=== PATIENT | male | born 1935 | race Caucasian/White ===

== ENCOUNTER 2023-07-27 11:01 | Day surgery (SDC) | payer OTHER, SELFPAY ==
[2023-07-27] VITALS (16 sets, daily range): BP systolic 112–143; BP diastolic 56–75; BMI 22.8
[2023-07-27 11:28] LABS: Hematocrit 32.8 % (39.0-52.0); Hemoglobin 10.7 g/dL (13.0-18.0); Mean Corp Hgb Conc. 32.6 g/dL (33.0-37.0); Mean Corpuscular Hgb 27.8 pg (27.0-31.0); Mean Corpuscular Volume 85.2 fL (80.0-94.0); Mean Platelet Volume 9.1 fL (7.4-10.4); Platelet Count 196 10^3/uL (130-400); Red Blood Cell Count 3.85 10^6/uL (4.70-6.10); Red Cell Dist. Width 14.2 % (11.5-14.5); White Blood Cell Count 5.3 10^3/uL (4.8-10.8)
[2023-07-27 11:41] LABS: ALT (SGPT) 19 U/L (0-50); AST (SGOT) 32 U/L (17-59); Albumin 4.1 g/dl (3.5-5.0); Alkaline Phosphatase 65 U/L (38-126); Blood Urea Nitrogen 21 mg/dl (9-20); Calcium 9.1 mg/dl (8.4-10.2); Carbon Dioxide 31 mmol/L (22-30); Chloride 101 mmol/L (98-107); Estimated Creatinine Clearance 63 ml/min; Glucose 92 mg/dl (70-99); Potassium 4.7 mmol/L (3.5-5.1); Sodium 139 mmol/L (135-145); Total Bilirubin 0.7 mg/dl (0.2-1.3); Total Protein 6.8 g/dl (6.3-8.2); eGFR > 60.00
--- NOTE | 2023-07-27 15:36 | ITS.CL.PACE ---
[facility] - Pacemaker Implant
Pacemaker Implant
Procedure Report:
Date of Procedure: July 27, 2023
Patient : [id number]
Procedure: Pacemaker Implantation.
Indication: Symptomatic sick sinus syndrome
Implants:
Pulse Generator: Medtronic; Model# W1 DR 01; SN: [id number]
RA Lead: Medtronic; Model# 4574; SN: [id number]
RV Lead: Medtronic; Model# 4074; SN: [id number]
Technique: A time out was performed. The procedure site was identified. The patient was anesthetized by the anesthesia service. Preoperative sedation was administered. The patient was prepped and draped in the usual fashion. Local anesthetic was
applied to the left prepectoral subcutaneous tissue. A 3 inch incision was made 2.5 inches below the left clavicle. A subcutaneous pocket was created with blunt and sharp dissection and hemostasis controlled with Bovie cautery. The left axillary
vein was accessed within the pocket without difficulty. Hemostasis was excellent. The leads were introduced with 7 Fr hemostatic peel away introducer sheaths. The ventricular lead was placed at the right ventricular apex. The atrial lead was placed
in the right atrial appendage. 10 volt pacing did not capture the diaphragm. The leads were secured to the pectoralis muscle and fascia. The leads were appropriately attached to the device. The pocket was irrigated with antibiotic solution. The
device and leads were placed in the pocket. The incision was closed in three layers with absorbable suture. The estimated blood loss was minimal. There were no complications.
Lead Analysis:
RA lead: P: 1.0 mV; Threshold: 0.4 V @ 0.5 ms; Impedance: 540 ohms.
RV lead: R: 6.0 mV; Threshold: 0.5 V @ 0.5 ms; Impedance: 790 ohms.
Final Programming: AAIR�DDDR 60-130 beats a minute
Conclusion: Uncomplicated Medtronic pacemaker implant.
Recommendation: Routine post pacemaker care.
--- NOTE | 2023-07-27 16:09 | W.PN.UPDATE ---
Update Note
Progress Note Update
88 yo WM s/p DC PPM for SSS (same day). He feels good, no pain, sob, jodee diet, voiding, amb w/o dizziness, site with Aquacel dressing c/d/i no HT. CXR no PTX leads in good position. EKG Apaced. Activity restrictions reviewed. He will continue ASA
and start metoprolol 25mg daily. He has incision check in 1 week at [facility] then will f/u Dr. Mei. I reviewed all of this with him and his daughter who helped with translation. He is for d/c home after 630p and another dose of IV Ancef.
[2023-07-27] MEDS: ANCEF 5 IV (18:13)
== END 2023-07-27 18:30 | disposition home or self-care (01) ==
LOC: CATH 11:01
PROVIDERS: ATTENDING PHYSICIAN Internal Medicine Cardiovascular Disease
DX: I49.5 Sick sinus syndrome (principal); I25.10 Atherosclerotic heart disease of native coronary artery without angina pectoris; I10 Essential (primary) hypertension; Z95.1 Presence of aortocoronary bypass graft; M19.90 Unspecified osteoarthritis, unspecified site; Z79.82 Long term (current) use of aspirin
CPT/HCPCS: 33208; 71045; 80053; 85027; 93005; C1785; C1892; C1898; Q9967